=== PATIENT | female | born 1990 ===

== ENCOUNTER 2017-01-16 08:28 | Emergency (ER) | payer OTHER ==
--- NOTE | 2017-01-16 10:17 | UC ---
Throat Pain/Nasal [place] HPI - HPI Summary HPI Summary: complaint of nasal congestion and cough thet started approx 1 week fatigue and body aches fever for the last 2 days frequent headaches some nausea -denies vomiting and diarrhea- drinking fluids without relief marlys sore throat, ear pain taking sudafed and ibuprofen for relief of symptoms - History of Current Complaint Chief Complaint: UCGeneralIllness Stated Complaint: FEVER CONGESTION Time Seen by Provider: 01/16/17 10:06 Hx Obtained From: Patient Hx Last Menstrual Period: 12/25/16 - Allergies/Home Medications Allergies/Adverse Reactions: Allergies Allergy/AdvReac Type Severity Reaction Status Date / Time Pertussis Vaccines Allergy Fever Verified 01/16/17 08:48 PMH/Surg Hx/FS Hx/Imm Hx Previously Healthy: Yes - IBS Endocrine History Of: Reports: Thyroid Disease - hypothyroid, Hypothyroidism Denies: Hyperthyroidism, Dyslipidemia Cardiovascular History Of: Denies: Cardiac Disorders, Hypertension, Atrial Fibrillation, Bleeding Disorders Respiratory History Of: Denies: Bronchitis GI/ History Of: Denies: Gastroesophageal Reflux, Diverticulitis Neurological History Of: Reports: Seizures - Only as an ., Migraine Denies: CVA Psychological History Of: Reports: Depression Denies: Post Traumatic Stress Disorder Cancer History Of: Denies: Colorectal Cancer, Breast Cancer, Prostate Cancer, Cervical Cancer Other History Of: Negative For: HIV, Hepatitis B, Hepatitis C - Surgical History Surgical History: Yes Surgery Procedure, Year, and Place: [place] teeth - Family History Known Family History: Positive: Hypertension, Diabetes Negative: Cardiac Disease - Social History Occupation: Employed Full-time Lives: With Family Alcohol Use: Daily Alcohol Amount: 2 glasses of wine/night Substance Use Type: None Smoking Status (MU): Never Smoked Tobacco - Immunization History Most Recent Influenza Vaccination: None Most Recent Tetanus Shot: UTD Most Recent Pneumonia Vaccination: N/A Review of Systems Constitutional: Fever, Fatigue Skin: Negative Eyes: Negative ENT: Nasal Discharge Respiratory: Cough Cardiovascular: Negative Gastrointestinal: Negative Genitourinary: Negative Motor: Negative Neurovascular: Negative Musculoskeletal: Myalgia Neurological: Headache Psychological: Negative All Other Systems Reviewed And Are Negative: Yes Physical Exam Triage Information Reviewed: Yes Appearance: No Pain Distress, Well-Nourished Vital Signs: Initial Vital Signs Temp 97.8 F 01/16/17 08:49 Pulse 78 01/16/17 08:49 Resp 18 01/16/17 08:49 BP 129/75 01/16/17 08:49 Pulse Ox 100 01/16/17 08:49 Vital Signs Reviewed: Yes Eyes: Positive: Conjunctiva Clear ENT: Positive: Pharynx normal, Nasal congestion, Nasal drainage, TMs normal, Other: - no sinus tenderness Neck: Positive: No Lymphadenopathy Respiratory: Positive: Lungs clear, Normal breath sounds, No respiratory distress Cardiovascular: Positive: RRR, No Murmur, Pulses Normal Abdomen Description: Positive: Nontender, No Organomegaly, Soft Bowel Sounds: Positive: Present Musculoskeletal: Positive: No Edema Neurological: Positive: Alert Psychological Exam: Normal Skin Exam: Normal Throat Pain/Nasal Course/Dx - Differential Dx/Diagnosis Differential Diagnosis/HQI/PQRI: Influenza, URI, Other - viral syndrome Provider Diagnoses: viral syndrome-influenzalike illnesss Discharge - Discharge Plan Condition: Stable Disposition: HOME Patient Education Materials: Influenza (ED) Forms: *Work Release Referrals: Kaveh Corea MD [Primary Care Provider] - Additional Instructions: Your blood pressure is pre-hypertensive reading. Please contact your primary care provider within 1 day -4 weeks for further evaluation. You have an influenza-like illness. Increase fluids and rest Take acetaminophen or ibuprofen for fever or pain Please review your discharge instructions. If your symptoms do not improve please call your primary care provider or return to urgent care.
== END 2017-01-16 10:30 | disposition home or self-care (01) ==
LOC: UCEAST 08:28
DX: J11.1 Influenza due to unidentified influenza virus with other respiratory manifestations (principal); B34.9 Viral infection, unspecified
CPT/HCPCS: 99211; G0463